=== PATIENT | female | born 1975 | race Hispanic/Latino ===

== ENCOUNTER 2017-10-22 14:22 | Emergency (ER) | payer OTHER, SELFPAY ==
[2017-10-22] MEDS ORDERED: Lidocaine 1% 20 ML MDV ONE (14:47)
[2017-10-22] MEDS ORDERED: Acetaminophen 500 MG TAB ONE (15:20)
[2017-10-22] MEDS ORDERED: Adacel (T-DAP) 0.5 ML VIAL ONE (15:21)
--- NOTE | 2017-10-22 15:21 | RAD ---
TWO VIEWS OF THE RIGHT FINGERS: HISTORY: Fishing lure stuck in middle finger. FINDINGS: Two views of the right fingers shows a fishing lure with a hook in the distal aspect of the middle finger. No fracture is seen. This hook does not appear to be embedded within bone. IMPRESSION: Fishing lure located in the distal aspect of the right middle finger. POS: [facility]
== END 2017-10-22 15:37 | disposition home or self-care (01) ==
LOC: NAV ERS 14:22
DX: S60.452A Superficial foreign body of right middle finger, initial encounter (principal); E11.9 Type 2 diabetes mellitus without complications; E03.9 Hypothyroidism, unspecified; E78.5 Hyperlipidemia, unspecified; W45.8XXA Other foreign body or object entering through skin, initial encounter
CPT/HCPCS: 64450; 90715; J2001